=== PATIENT | female | born 1985 | race Caucasian/White ===

== ENCOUNTER 2016-10-05 09:45 | Emergency (ER) | payer OTHER ==
[2016-10-05 09:56] VITALS: RESP 18
--- NOTE | 2016-10-05 10:47 | XR ---
EXAMINATION TYPE: XR shoulder complete LT DATE OF EXAM: 10/05/2016 COMPARISON: NONE HISTORY: Pain TECHNIQUE: Three views are submitted. FINDINGS: The osseous structures are intact. There is no acute fracture or dislocation. The AC joint is maint ained. IMPRESSION: 1. No acute process. Follow-up with MRI if there is concern for soft tissue or rotator cuff injury.
--- NOTE | 2016-10-05 10:58 | ED ---
Upper Extremity HPI - General Chief Complaint: Extremity Injury, Upper Stated Complaint: shoulder pain Time Seen by Provider: 10/05/16 10:08 Source: patient, RN notes reviewed, old records reviewed Mode of arrival: ambulatory Limitations: no limitations - History of Present Illness Initial Comments: this is a 31-year-old female presenting to the emergency Department chief complaint of left shoulder pain. 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 Patient reports that since then she felt like her shoulder popped out of the time but then she relocated. Patient reports that she has full range of motion but it is more painful when she fully extends abducts her arm. Patient states she has no numbness or tingling down her hand or arm. Denies any bruising noted to the shoulder. Patient states that she has never seen an orthopedic physician before. Patient denies aching anything for pain.patient ports that she is right-handed. - Related Data Home Medications Medication Instructions Recorded Confirmed Calcium Carbonate [Calcium] 1,200 mg PO DAILY 08/25/14 11/22/15 Folic Acid 1.6 mg PO DAILY 06/14/15 11/22/15 Lisinopril [Lisinopril] 10 mg PO DAILY 11/22/15 11/22/15 Previous Rx's Medication Instructions Recorded Cephalexin [Keflex] 500 mg PO Q8HR #21 cap 11/22/15 Ibuprofen [Motrin] 600 mg PO Q8HR PRN #20 tab 10/05/16 Allergies Allergy/AdvReac Type Severity Reaction Status Date / Time venom-honey bee Allergy Swelling Verified 10/05/16 09:56 [bee venom (honey bee)] Review of Systems ROS Statement: Those systems with pertinent positive or pertinent negative responses have been documented in the HPI. ROS Other: All systems not noted in ROS Statement are negative. Past Medical History Past Medical History: Hypertension History of Any Multi-Drug Resistant Organisms: None Reported Past Surgical History: Tubal Ligation Additional Past Surgical History / Comment(s): wisdom teeth extraction Past Psychological History: No Psychological Hx Reported Smoking Status: Never smoker Past Alcohol Use History: Rare Past Drug Use History: None Reported General Exam - General Exam Comments Initial Comments: well-appearing 31-year-old female. No acute distress. Limitations: no limitations General appearance: alert, in no apparent distress Head exam: Present: atraumatic, normocephalic, normal inspection Eye exam: Present: normal appearance, PERRL, EOMI. Absent: scleral icterus, conjunctival injection, periorbital swelling ENT exam: Present: normal exam, mucous membranes moist Neck exam: Present: normal inspection. Absent: tenderness, meningismus, lymphadenopathy Respiratory exam: Present: normal lung sounds bilaterally. Absent: respiratory distress, wheezes, rales, rhonchi, stridor Cardiovascular Exam: Present: regular rate, normal rhythm, normal heart sounds. Absent: systolic murmur, diastolic murmur, rubs, gallop, clicks GI/Abdominal exam: Present: soft, normal bowel sounds. Absent: distended, tenderness, guarding, rebound, rigid Extremities exam: Present: normal inspection, full ROM, normal capillary refill. Absent: tenderness, pedal edema, joint swelling, calf tenderness Back exam: Present: normal inspection Neurological exam: Present: alert Psychiatric exam: Present: normal affect, normal mood Skin exam: Present: warm, dry, intact, normal color. Absent: rash Course Vital Signs 10/05/16 10/05/16 09:53 11:10 Temperature 98.7 F 98.1 F Pulse Rate 59 L 61 Respiratory 18 18 Rate Blood Pressure 151/106 130/95 O2 Sat by Pulse 97 100 Oximetry Medical Decision Making - Medical Decision Making this is a 31-year-old female chief complaint of left shoulder pain after getting kicked by for cattle. No bruising noted. She does have full range of motion reports pain with abduction. Patient actually was reviewed and negative for any acute process. She has normal sensation distally in the left hand and elbow. Patient will be discharged with a temperature medication. Discussed close follow-up with orthopedic physician. Patient agrees to plan will comply. Return parameters were discussed. - Radiology Data Radiology results: report reviewed Xray shoulder negative for any acute fracture, correlate with MRI for further treatment. Disposition Clinical Impression: Contusion of left shoulder, Rotator cuff sprain Disposition: HOME SELF-CARE Condition: Good Instructions: Rotator Cuff Injury (ED) Additional Instructions: is advised to apply heat and ice her shoulder. Take pain same temperature medication as directed. Follow-up with orthopedic. Return to emergency department if any alarming signs or symptoms occur. Prescriptions: Ibuprofen [Motrin] 600 mg PO Q8HR PRN #20 tab PRN Reason: Pain Referrals: Hammad Lundberg MD [Primary Care Provider] - 1-2 days Milad Michele PAC [PHYSICIAN WEIGHT COUNT OPERATOR] - 1-2 days Time of Disposition: 10:57
[2016-10-05 11:11] VITALS: BP 130/95; PULSE 61; TEMP 98.1
== END 2016-10-05 11:11 | disposition home or self-care (01) ==
LOC: EC 09:45
DX: S43.422A Sprain of left rotator cuff capsule, initial encounter (principal); S40.012A Contusion of left shoulder, initial encounter; I10 Essential (primary) hypertension; Z79.899 Other long term (current) drug therapy; Z91.030 Bee allergy status; W55.22XA Struck by cow, initial encounter; Y93.K9 Activity, other involving animal care
CPT/HCPCS: 99284

== ENCOUNTER 2016-12-30 21:19 | Emergency (ER) | payer OTHER ==
[2016-12-30] MEDS ORDERED: KETOROLAC 30 MG/ML 1 ML VIAL IVP STA (22:03)
[2016-12-30 22:13] LABS: Basophils % (A) 0 %; CH 30.1; CHCM 32.3; Eosinophils # (A) 0.3 k/uL (0-0.7); Eosinophils % (A) 5 %; HCT 43.4 % (34.0-46.0); HDW 2.02; HGB 13.7 gm/dL (11.4-16.0); Luc # (Auto) 0.07; Luc % (Auto) 1; Lymphocytes # (A) 1.6 k/uL (1.0-4.8); Lymphocytes % (A) 24 %; MCH 29.6 pg (25.0-35.0); MCHC 31.6 g/dL (31.0-37.0); MCV 93.7 fL (80.0-100.0); Mean Platelet Volume 8.2; Monocytes # (A) 0.6 k/uL (0-1.0); Monocytes % (A) 10 %; Neutrophils # (A) 3.8 k/uL (1.3-7.7); Neutrophils % (A) 60 %; RBC 4.63 m/uL (3.80-5.40); RDW 13.9 % (11.5-15.5); WBC 6.4 k/uL (3.8-10.6); WBC (Perox) 6.66
[2016-12-30 22:14] LABS: Appearance,Urine Clear (Clear); Bacteria,Urine Rare /hpf; Bilirubin,Urine Negative (Negative); Glucose,Urine (UA) Negative (Negative); Ketones,Urine Negative (Negative); Leukocyte Esterase,Urine Trace (Negative); Mucus,Urine Occasional /hpf; Nitrite,Urine Negative (Negative); PH, Urine 5.5 (5.0-8.0); Particle Count 4446; Protein,Urine Trace (Negative); Specific Gravity,Urine 1.019 (1.001-1.035); Squamous Epithelial Cell,Urine 6 /hpf (0-4); UA Billing (MACRO vs. MICRO) MICRO; Urobilinogen,Urine <2.0 mg/dL (<2.0); WBC,Urine 4 /hpf (0-5)
[2016-12-30 22:23] LABS: ALT 32 U/L (9-52); AST 21 U/L (14-36); Alkaline Phosphatase 54 U/L (38-126); Anion Gap 6 mmol/L; Blood Urea Nitrogen 16 mg/dL (7-17); Carbon Dioxide 29 mmol/L (22-30); Chloride 104 mmol/L (98-107); Glucose 95 mg/dL (74-99); Non-African American GFR(MDRD) >60 (>60 ml/min/1.73 sqM); Potassium 3.8 mmol/L (3.5-5.1); Sodium 139 mmol/L (137-145); Total Bilirubin 0.3 mg/dL (0.2-1.3); Total Protein 6.5 g/dL (6.3-8.2)
--- NOTE | 2016-12-30 23:09 | US ---
EXAMINATION TYPE: US transvaginal DATE OF EXAM: 12/30/2016 COMPARISON: NONE CLINICAL HISTORY: Pain. Pain TECHNIQUE: Transvaginal (TV) Date of LMP: 12/29/2016 EXAM MEASUREMENTS: Uterus: 8.0 x 4.2 x 5.9 cm Endometrial Stripe: 0.7 cm Right Ovary: 3.5 x 1.9 x 2.2 cm Left Ovary: 2.1 x 1.5 x 1.7 cm 1. Uterus: Anteverted wnl 2. Endometrium: Hypoechoic in appearance 3. Right Ovary: Anechoic area seen measuring 1.8 x 1.6 x 1.8cm 4. Left Ovary: Follicles visualized Spectral, color and waveform doppler imaging shows good arterial and venous flow within the ovaries ; there is no evidence for ovarian torsion. 5. Bilateral Adnexa: wnl 6. Posterior cul-de-sac: wnl Anechoic area visualized right ovary measuring 1.8 x 1.6 x 1.8cm IMPRESSION: No evidence of ovarian torsion. Simple right ovarian cyst. Normal uterus and endometrium.
--- NOTE | 2016-12-30 23:13 | ED ---
Abdominal Pain HPI - General Chief Complaint: Abdominal Pain Stated Complaint: Female Time Seen by Provider: 12/30/16 21:52 Source: patient Mode of arrival: ambulatory Limitations: no limitations - History of Present Illness Initial Comments: 31 year-old female patient presents to the emergency department today for evaluation of left lower pelvic pain. Patient states that this started early this morning. States that she has had this pain intermittently since then. She states that the pain is a sharp and cramping. Patient states that she did start her period today however denies any history of similar pain with her periods. She denies any abnormal vaginal discharge or bleeding prior to starting her period today. She denies any hematuria, dysuria, urinary frequency , or urinary urgency. Denies any radiation of the pain into her back. Patient denies any recent rash, fever, chills, shortness breath, chest pain, nausea, vomiting, diarrhea, constipation, back pain, numbness, tingling, dizziness, weakness, headache, visual changes, or any other complaints. - Related Data Home Medications Medication Instructions Recorded Confirmed Folic Acid 0.8 mg PO DAILY 06/14/15 12/30/16 Lisinopril [Lisinopril] 10 mg PO DAILY 11/22/15 12/30/16 Calcium Carbonate/Vitamin D3 1 tab PO DAILY 12/30/16 12/30/16 [Calcium 600-Vit D3 200 Tablet] Cranberry Fruit Concentrate 450 mg PO DAILY 12/30/16 12/30/16 [Cranberry] Allergies Allergy/AdvReac Type Severity Reaction Status Date / Time venom-honey bee Allergy Swelling Verified 12/30/16 22:28 [bee venom (honey bee)] Review of Systems ROS Statement: Those systems with pertinent positive or pertinent negative responses have been documented in the HPI. ROS Other: All systems not noted in ROS Statement are negative. Past Medical History Past Medical History: Hypertension History of Any Multi-Drug Resistant Organisms: None Reported Past Surgical History: Tubal Ligation Additional Past Surgical History / Comment(s): wisdom teeth extraction Past Psychological History: No Psychological Hx Reported Smoking Status: Never smoker Past Alcohol Use History: Rare Past Drug Use History: None Reported General Exam Limitations: no limitations General appearance: alert, in no apparent distress, other (This is a well- developed, well-nourished adult female patient in no acute distress. Vital signs upon presentation were temperature 98.9F, pulse 80, respirations 20, blood pressure 153/98, pulse ox 99% on room air.) Eye exam: Present: normal appearance, PERRL, EOMI. Absent: scleral icterus, conjunctival injection, periorbital swelling Respiratory exam: Present: normal lung sounds bilaterally. Absent: respiratory distress, wheezes, rales, rhonchi, stridor Cardiovascular Exam: Present: regular rate, normal rhythm, normal heart sounds. Absent: systolic murmur, diastolic murmur, rubs, gallop, clicks GI/Abdominal exam: Present: soft, normal bowel sounds. Absent: distended, tenderness, guarding, rebound, rigid Back exam: Present: normal inspection. Absent: CVA tenderness (R), CVA tenderness (L) Neurological exam: Present: alert, oriented X3, CN II-XII intact Psychiatric exam: Present: normal affect, normal mood Skin exam: Present: warm, dry, intact, normal color. Absent: rash Course Vital Signs 12/30/16 12/30/16 21:35 23:32 Temperature 98.9 F 98 F Pulse Rate 80 84 Respiratory 20 18 Rate Blood Pressure 153/98 142/90 O2 Sat by Pulse 99 100 Oximetry Medical Decision Making - Medical Decision Making 31-year-old female patient presented to the emergency department today for evaluation of left lower pelvic pain. Physical examination was unremarkable. Patient was not specially tender to the left pelvic region. Patient did report that she started her period today. We did do blood work which was unremarkable. Urinalysis was negative for any acute infection. Transvaginal ultrasound of the pelvis was obtained and showed a simple right ovarian cyst. No evidence of ovarian torsion. I did discuss findings with the patient. I informed her that her symptoms are most likely from menstrual cramping. She is instructed to follow-up with her primary care physician for recheck in 1-2 days. She is instructed to follow-up with her LOCATION DIRECTOR for further evaluation. She states instructed to return here immediately for any new, worsening, or concerning symptoms. She verbalizes understanding and agrees with this plan. - Lab Data Result diagrams: 12/30/16 22:00 12/30/16 22:00 Lab Results 12/30/16 12/30/16 12/30/16 Range/Units 22:00 22:00 22:00 WBC 6.4 (3.8-10.6) k/uL RBC 4.63 (3.80-5.40) m/uL Hgb 13.7 (11.4-16.0) gm/dL Hct 43.4 (34.0-46.0) % MCV 93.7 (80.0-100.0) fL MCH 29.6 (25.0-35.0) pg MCHC 31.6 (31.0-37.0) g/dL RDW 13.9 (11.5-15.5) % Plt Count 202 (150-450) k/uL Neutrophils % 60 % Lymphocytes % 24 % Monocytes % 10 % Eosinophils % 5 % Basophils % 0 % Neutrophils # 3.8 (1.3-7.7) k/uL Lymphocytes # 1.6 (1.0-4.8) k/uL Monocytes # 0.6 (0-1.0) k/uL Eosinophils # 0.3 (0-0.7) k/uL Basophils # 0.0 (0-0.2) k/uL Sodium 139 (137-145) mmol/L Potassium 3.8 (3.5-5.1) mmol/L Chloride 104 (98-107) mmol/L Carbon Dioxide 29 (22-30) mmol/L Anion Gap 6 mmol/L BUN 16 (7-17) mg/dL Creatinine 0.89 (0.52-1.04) mg/dL Est GFR (MDRD) Af Amer >60 (>60 ml/min/1.73 sqM) Est GFR (MDRD) Non-Af >60 (>60 ml/min/1.73 sqM) Glucose 95 (74-99) mg/dL Calcium 10.0 (8.4-10.2) mg/dL Total Bilirubin 0.3 (0.2-1.3) mg/dL AST 21 (14-36) U/L ALT 32 (9-52) U/L Alkaline Phosphatase 54 (38-126) U/L Total Protein 6.5 (6.3-8.2) g/dL Albumin 3.8 (3.5-5.0) g/dL Urine Color Urine Appearance (Clear) Urine pH (5.0-8.0) Ur Specific [place] (1.001-1.035) Urine Protein (Negative) Urine Glucose (UA) (Negative) Urine Ketones (Negative) Urine Blood (Negative) Urine Nitrite (Negative) Urine Bilirubin (Negative) Urine Urobilinogen (<2.0) mg/dL Ur Leukocyte Esterase (Negative) Urine WBC (0-5) /hpf Ur Squamous Epith Cells (0-4) /hpf Urine Bacteria (None) /hpf Urine Mucus (None) /hpf Urine HCG, Qual Not Detected (Not Detectd) 12/30/16 Range/Units 22:00 WBC (3.8-10.6) k/uL RBC (3.80-5.40) m/uL Hgb (11.4-16.0) gm/dL Hct (34.0-46.0) % MCV (80.0-100.0) fL MCH (25.0-35.0) pg MCHC (31.0-37.0) g/dL RDW (11.5-15.5) % Plt Count (150-450) k/uL Neutrophils % % Lymphocytes % % Monocytes % % Eosinophils % % Basophils % % Neutrophils # (1.3-7.7) k/uL Lymphocytes # (1.0-4.8) k/uL Monocytes # (0-1.0) k/uL Eosinophils # (0-0.7) k/uL Basophils # (0-0.2) k/uL Sodium (137-145) mmol/L Potassium (3.5-5.1) mmol/L Chloride (98-107) mmol/L Carbon Dioxide (22-30) mmol/L Anion Gap mmol/L BUN (7-17) mg/dL Creatinine (0.52-1.04) mg/dL Est GFR (MDRD) Af Amer (>60 ml/min/1.73 sqM) Est GFR (MDRD) Non-Af (>60 ml/min/1.73 sqM) Glucose (74-99) mg/dL Calcium (8.4-10.2) mg/dL Total Bilirubin (0.2-1.3) mg/dL AST (14-36) U/L ALT (9-52) U/L Alkaline Phosphatase (38-126) U/L Total Protein (6.3-8.2) g/dL Albumin (3.5-5.0) g/dL Urine Color Yellow Urine Appearance Clear (Clear) Urine pH 5.5 (5.0-8.0) Ur Specific [place] 1.019 (1.001-1.035) Urine Protein Trace H (Negative) Urine Glucose (UA) Negative (Negative) Urine Ketones Negative (Negative) Urine Blood Large H (Negative) Urine Nitrite Negative (Negative) Urine Bilirubin Negative (Negative) Urine Urobilinogen <2.0 (<2.0) mg/dL Ur Leukocyte Esterase Trace H (Negative) Urine WBC 4 (0-5) /hpf Ur Squamous Epith Cells 6 H (0-4) /hpf Urine Bacteria Rare H (None) /hpf Urine Mucus Occasional H (None) /hpf Urine HCG, Qual (Not Detectd) - Radiology Data Radiology results: report reviewed, image reviewed Transvaginal pelvic ultrasound was obtained. Report reviewed in its entirety. Impression by Dr. Hernandez shows no evidence of ovarian torsion. Simple right ovarian cyst. Normal uterus and endometrium. Disposition Clinical Impression: Pelvic pain, Ovarian cyst Disposition: HOME SELF-CARE Condition: Good Instructions: Pelvic Pain in Women (ED) Additional Instructions: Take ibuprofen for pain control. Follow-up with your LOCATION DIRECTOR for reevaluation as soon as possible. Return here immediately for any new, worsening, or concerning symptoms. Referrals: Hammad Lundberg MD [Primary Care Provider] - 1-2 days Time of Disposition: 23:13
[2016-12-30 23:33] VITALS: BP 142/90; PULSE 84; RESP 18; TEMP 98
== END 2016-12-30 23:32 | disposition home or self-care (01) ==
LOC: EC 21:19
DX: N83.201 Unspecified ovarian cyst, right side (principal); I10 Essential (primary) hypertension; Z79.899 Other long term (current) drug therapy; Z91.030 Bee allergy status; Z98.51 Tubal ligation status
CPT/HCPCS: 36415; 80053; 85025; 81001; 81025; 93975; 76830; 99284; 96374; J1885

== ENCOUNTER 2017-09-09 16:24 | Emergency (ER) | payer OTHER ==
[2017-09-09 16:39] VITALS: RESP 18
[2017-09-09] MEDS ORDERED: KETOROLAC 30 MG/ML 1 ML VIAL IM STA (17:03)
[2017-09-09] MEDS ORDERED: LISINOPRIL 20 MG TAB PO STA (17:04)
--- NOTE | 2017-09-09 17:08 | ED ---
Extremity Problem HPI - General Chief complaint: Extremity Problem,Nontraumatic Stated complaint: Shoulder Pain Time Seen by Provider: 09/09/17 16:56 Source: patient Mode of arrival: ambulatory Limitations: no limitations - History of Present Illness Initial comments: 31-year-old female patient presents to emergency department today for evaluation of right shoulder pain. Patient states that the pain started today while she was at work. Patient states that she has been doing this job for the last 3 years and has not had any problems. Patient is from the pain as a sharp stabbing pain in the ball of her shoulder. States it hurts worse when she raises her arm above her head. States the pain goes from the right side of her neck down to the shoulder. She denies any numbness or tingling to the arm. She denies any abdominal pain, nausea, or vomiting with this. Denies any chest or back pain. Denies any shortness of breath. Patient states that about a week ago she was kicked in the shoulder by a bull, but did not have any problems after that until now. Patient denies any recent rash, fever, chills, diarrhea, constipation, back pain, dizziness, weakness, hematuria, dysuria, urinary urgency, urinary frequency, headache, visual changes, or any other complaints. - Related Data Home Medications Medication Instructions Recorded Confirmed Folic Acid 0.8 mg PO DAILY 06/14/15 09/09/17 Calcium Carbonate/Vitamin D3 1 tab PO DAILY 12/30/16 09/09/17 [Calcium 600-Vit D3 200 Tablet] Cranberry Fruit Concentrate 450 mg PO DAILY 12/30/16 09/09/17 [Cranberry] Ferrous Sulfate [Feosol] 325 mg PO DAILY 09/09/17 09/09/17 Ibuprofen [Motrin Ib] 400 mg PO Q6H PRN 09/09/17 09/09/17 Vitamin C/Biotin [Hair, Skin and 1 tab PO DAILY 09/09/17 09/09/17 Nails] Previous Rx's Medication Instructions Recorded Lisinopril [Prinivil] 20 mg PO DAILY #30 tablet 09/09/17 Allergies Allergy/AdvReac Type Severity Reaction Status Date / Time venom-honey bee Allergy Swelling Verified 09/09/17 17:21 [bee venom (honey bee)] Review of Systems ROS Statement: Those systems with pertinent positive or pertinent negative responses have been documented in the HPI. ROS Other: All systems not noted in ROS Statement are negative. Past Medical History Past Medical History: Hypertension History of Any Multi-Drug Resistant Organisms: None Reported Past Surgical History: Tubal Ligation Additional Past Surgical History / Comment(s): wisdom teeth extraction Past Psychological History: No Psychological Hx Reported Smoking Status: Never smoker Past Alcohol Use History: Rare Past Drug Use History: None Reported General Exam Limitations: no limitations General appearance: alert, in no apparent distress, other (This is a well- developed, well-nourished adult female patient in no acute distress. Vital signs upon presentation are temperature 98.5F, pulse 65, respirations 18, blood pressure 180/125, pulse ox 99% on room air.) Eye exam: Present: normal appearance, PERRL, EOMI. Absent: scleral icterus, conjunctival injection, periorbital swelling ENT exam: Present: normal exam, normal oropharynx, mucous membranes moist Respiratory exam: Present: normal lung sounds bilaterally. Absent: respiratory distress, wheezes, rales, rhonchi, stridor Cardiovascular Exam: Present: regular rate, normal rhythm, normal heart sounds. Absent: systolic murmur, diastolic murmur, rubs, gallop, clicks GI/Abdominal exam: Present: soft, normal bowel sounds. Absent: distended, tenderness, guarding, rebound, rigid Extremities exam: Present: normal inspection, full ROM, normal capillary refill , other (Patient has full range of motion no tenderness to the right shoulder. Does report increased pain with forward flexion, extension, abduction both passive and active. Skin to the right arm is pink, warm, and dry. Cap refills less than 3 seconds. Radial pulses 2+ and equal bilaterally. Machine Helper strength is equal bilaterally.). Absent: tenderness, pedal edema, joint swelling, calf tenderness Back exam: Present: normal inspection. Absent: vertebral tenderness Neurological exam: Present: alert, oriented X3, CN II-XII intact Psychiatric exam: Present: normal affect, normal mood Skin exam: Present: warm, dry, intact, normal color. Absent: rash Course Vital Signs 09/09/17 09/09/17 16:36 17:14 Temperature 98.5 F Pulse Rate 65 63 Respiratory 18 18 Rate Blood Pressure 180/125 211/119 O2 Sat by Pulse 99 98 Oximetry Medical Decision Making - Medical Decision Making 31-year-old female patient presented to the emergency department today for evaluation of right shoulder pain. Physical examination was relatively unremarkable ever patient did have increased pain with range of motion. X-ray did show degenerative changes to the acromioclavicular joint. Patient's blood pressure is also elevated while here in the emergency department. We did give her blood pressure medication we will prescribe her 30 days worth until she can get in to see her primary care physician to have further management did discuss findings and results with the patient. We did discuss muscular versus tendinous injury for the cause of her pain. She is instructed to follow-up with her primary care physician for symptoms aren't improved over the next 1-2 days. Return parameters discussed in detail. She verbalizes understanding and agrees this plan. - Radiology Data Radiology results: report reviewed, image reviewed 3 views of the right shoulder obtained. Report is reviewed in its entirety. Impression by Dr. Centeno shows no acute process. Disposition Clinical Impression: Right shoulder pain Disposition: HOME SELF-CARE Condition: Good Instructions: Shoulder Pain (ED) Additional Instructions: Apply warm moist heat to the right shoulder. Take pain medication as instructed. Take blood pressure medication as directed, have refills by her primary care physician. Follow-up with her primary care physician for recheck in 1-2 days. Return here immediately for any new, worsening, or concerning symptoms. Prescriptions: Lisinopril [Prinivil] 20 mg PO DAILY #30 tablet Is patient prescribed a controlled substance at d/c from ED?: No Referrals: Hammad Lundberg MD [Primary Care Provider] - 1-2 days Time of Disposition: 18:17
--- NOTE | 2017-09-09 17:51 | XR ---
PROCEDURE: XR shoulder complete RT, 3 views DATE AND TIME: 09/09/2017 5:11 PM REFERRING PHYSICIAN: Bobbi Miller CLINICAL INDICATION: PHH, Pain after injury TECHNIQUE: Department protocol. COMPARISON: None FINDINGS: There is no fracture or malalignment. Mild acromioclavicular joint degenerative changes appreciated, without malalignment. The soft tissues are unremarkable. IMPRESSION: NO ACUTE PROCESS.
[2017-09-09] MEDS ORDERED: ACET/COD 300 MG/30 MG STARTER PACK 6 TAB BTL PO STA (18:17)
[2017-09-09 18:33] VITALS: BP 193/127; PULSE 66; TEMP 97.9
[2017-09-09] MEDS ORDERED: cloNIDine HCL 0.1 MG TAB PO STA (18:33)
== END 2017-09-09 18:40 | disposition home or self-care (01) ==
LOC: EC 16:24
DX: M25.511 Pain in right shoulder (principal); M19.011 Primary osteoarthritis, right shoulder; I10 Essential (primary) hypertension; Z79.899 Other long term (current) drug therapy; Z91.030 Bee allergy status
CPT/HCPCS: 73030; 99283; 96372; J1885

== ENCOUNTER 2018-07-26 15:42 | Emergency (ER) | payer OTHER ==
[2018-07-26 15:52] VITALS: RESP 18
[2018-07-26] MEDS ORDERED: SODIUM CHLORIDE 0.9% 500 ML 500 ML IV STA (16:39)
--- NOTE | 2018-07-26 16:44 | ED ---
General Adult HPI - General Chief complaint: Abdominal Pain Stated complaint: left side upper abdominal pain Time Seen by Provider: 07/26/18 16:25 Source: patient, RN notes reviewed Mode of arrival: ambulatory Limitations: no limitations - History of Present Illness Initial comments: 32-year-old female with a past medical history of hypertension presents to the emergency department for a chief complaint of left-sided chest pain. States that this started this morning. States it was sharp in nature. States that it breathing makes it worse. States deep breaths seem to worsen this. States this didn't go away however about 3 hours ago came back when she was at work. Denies any cardiac history. Denies any hormone use or recent travel. Denies any calf pain. Denies any abdominal pain. Denies any back pain. Patient has no other complaints at this time including shortness of breath, abdominal pain, nausea or vomiting, headache, or visual changes. - Related Data Home Medications Medication Instructions Recorded Confirmed Calcium Carbonate/Vitamin D3 1 tab PO DAILY 12/30/16 07/26/18 [Calcium 600-Vit D3 200 Tablet] Ferrous Sulfate [Feosol] 325 mg PO DAILY 09/09/17 07/26/18 Vitamin C/Biotin [Hair, Skin and 1 tab PO DAILY 09/09/17 07/26/18 Nails] Previous Rx's Medication Instructions Recorded Lisinopril [Prinivil] 20 mg PO DAILY #30 tablet 09/09/17 Allergies Allergy/AdvReac Type Severity Reaction Status Date / Time venom-honey bee Allergy Swelling Verified 07/26/18 16:25 [bee venom (honey bee)] Review of Systems ROS Statement: Those systems with pertinent positive or pertinent negative responses have been documented in the HPI. ROS Other: All systems not noted in ROS Statement are negative. Past Medical History Past Medical History: Hypertension History of Any Multi-Drug Resistant Organisms: None Reported Past Surgical History: Tubal Ligation Additional Past Surgical History / Comment(s): wisdom teeth extraction Past Psychological History: No Psychological Hx Reported Smoking Status: Never smoker Past Alcohol Use History: Rare Past Drug Use History: None Reported General Exam Limitations: no limitations General appearance: alert, in no apparent distress Head exam: Present: atraumatic, normocephalic, normal inspection Eye exam: Present: normal appearance, PERRL, EOMI. Absent: scleral icterus, conjunctival injection, periorbital swelling ENT exam: Present: normal exam, mucous membranes moist Neck exam: Present: normal inspection, full ROM. Absent: tenderness, meningismus, lymphadenopathy Respiratory exam: Present: normal lung sounds bilaterally, chest wall tenderness (Tenderness noted to the left inferior chest wall, reproducible). Absent: respiratory distress, wheezes, rales, rhonchi, stridor Cardiovascular Exam: Present: regular rate, normal rhythm, normal heart sounds. Absent: systolic murmur, diastolic murmur, rubs, gallop, clicks GI/Abdominal exam: Present: soft, normal bowel sounds. Absent: distended, tenderness, guarding, rebound, rigid Neurological exam: Present: alert, oriented X3, CN II-XII intact Psychiatric exam: Present: normal affect, normal mood Course Vital Signs 07/26/18 07/26/18 15:50 17:16 Temperature 98.2 F 97.9 F Pulse Rate 76 64 Respiratory 18 18 Rate Blood Pressure 153/102 139/106 O2 Sat by Pulse 100 99 Oximetry EKG Findings - EKG Comments: EKG Findings:: Normal sinus rhythm, ventricular rate 67, LA interval 170, QTc 458 Medical Decision Making - Medical Decision Making 32-year-old female presents to the emergency department for a chief complaint of left-sided pleuritic chest pain. States this started today and then went away. States it started again about 3 hours ago. On exam patient is well-appearing. Patient does have reproducible left-sided chest pain with palpation. Vitals are stable the patient is hypertensive. Patient does have a known history of hypertension. CBC CMP unremarkable. Troponin negative, d-dimer negative. Low suspicion for PE. EKG does not show any evidence of ST elevation or depression. Chest x-ray negative for any acute pathologies. Patient reevaluated, states she is actually pain-free. At this time patient likely has musculoskeletal chest pain in origin as it is reproducible on exam. Patient will follow up with primary care. She'll return if she has any worsening symptoms. On discharge patient's diastolic blood pressure slightly elevated at 106. This is asymptomatic and did not think this pleuritic chest pain which is now pain- free is related whatsoever. However patient was given a 10 mg dose of lisinopril as she normally takes 20 in the morning. Discussed following up with her primary care for the pressure medication changes. - Lab Data Result diagrams: 07/26/18 16:46 07/26/18 16:46 Lab Results 07/26/18 07/26/18 07/26/18 Range/Units 16:46 16:46 16:46 WBC 7.5 (3.8-10.6) k/uL RBC 4.99 (3.80-5.40) m/uL Hgb 14.6 (11.4-16.0) gm/dL Hct 45.5 (34.0-46.0) % MCV 91.1 (80.0-100.0) fL MCH 29.3 (25.0-35.0) pg MCHC 32.1 (31.0-37.0) g/dL RDW 12.7 (11.5-15.5) % Plt Count 204 (150-450) k/uL Neutrophils % 50 % Lymphocytes % 36 % Monocytes % 6 % Eosinophils % 5 % Basophils % 1 % Neutrophils # 3.7 (1.3-7.7) k/uL Lymphocytes # 2.7 (1.0-4.8) k/uL Monocytes # 0.5 (0-1.0) k/uL Eosinophils # 0.4 (0-0.7) k/uL Basophils # 0.0 (0-0.2) k/uL PT 10.2 (9.0-12.0) sec INR 0.9 (<1.2) APTT 24.2 (22.0-30.0) sec D-Dimer <0.17 (<0.60) mg/L FEU Sodium 139 (137-145) mmol/L Potassium 4.6 (3.5-5.1) mmol/L Chloride 107 (98-107) mmol/L Carbon Dioxide 25 (22-30) mmol/L Anion Gap 7 mmol/L BUN 16 (7-17) mg/dL Creatinine 0.67 (0.52-1.04) mg/dL Est GFR (CKD-EPI)AfAm >90 (>60 ml/min/1.73 sqM) Est GFR (CKD-EPI)NonAf >90 (>60 ml/min/1.73 sqM) Glucose 97 (74-99) mg/dL Calcium 9.3 (8.4-10.2) mg/dL Magnesium 2.2 (1.6-2.3) mg/dL Total Bilirubin 0.4 (0.2-1.3) mg/dL AST 27 (14-36) U/L ALT 24 (9-52) U/L Alkaline Phosphatase 61 (38-126) U/L Troponin I (0.000-0.034) ng/mL Total Protein 6.9 (6.3-8.2) g/dL Albumin 4.2 (3.5-5.0) g/dL Amylase 45 (30-110) U/L Lipase 156 (23-300) U/L Urine Color Urine Appearance (Clear) Urine pH (5.0-8.0) Ur Specific [place] (1.001-1.035) Urine Protein (Negative) Urine Glucose (UA) (Negative) Urine Ketones (Negative) Urine Blood (Negative) Urine Nitrite (Negative) Urine Bilirubin (Negative) Urine Urobilinogen (<2.0) mg/dL Ur Leukocyte Esterase (Negative) Urine RBC (0-5) /hpf Urine WBC (0-5) /hpf Ur Squamous Epith Cells (0-4) /hpf Urine Bacteria (None) /hpf Urine Mucus (None) /hpf Urine HCG, Qual (Not Detectd) 07/26/18 07/26/18 07/26/18 Range/Units 16:46 17:00 17:00 WBC (3.8-10.6) k/uL RBC (3.80-5.40) m/uL Hgb (11.4-16.0) gm/dL Hct (34.0-46.0) % MCV (80.0-100.0) fL MCH (25.0-35.0) pg MCHC (31.0-37.0) g/dL RDW (11.5-15.5) % Plt Count (150-450) k/uL Neutrophils % % Lymphocytes % % Monocytes % % Eosinophils % % Basophils % % Neutrophils # (1.3-7.7) k/uL Lymphocytes # (1.0-4.8) k/uL Monocytes # (0-1.0) k/uL Eosinophils # (0-0.7) k/uL Basophils # (0-0.2) k/uL PT (9.0-12.0) sec INR (<1.2) APTT (22.0-30.0) sec D-Dimer (<0.60) mg/L FEU Sodium (137-145) mmol/L Potassium (3.5-5.1) mmol/L Chloride (98-107) mmol/L Carbon Dioxide (22-30) mmol/L Anion Gap mmol/L BUN (7-17) mg/dL Creatinine (0.52-1.04) mg/dL Est GFR (CKD-EPI)AfAm (>60 ml/min/1.73 sqM) Est GFR (CKD-EPI)NonAf (>60 ml/min/1.73 sqM) Glucose (74-99) mg/dL Calcium (8.4-10.2) mg/dL Magnesium (1.6-2.3) mg/dL Total Bilirubin (0.2-1.3) mg/dL AST (14-36) U/L ALT (9-52) U/L Alkaline Phosphatase (38-126) U/L Troponin I <0.012 (0.000-0.034) ng/mL Total Protein (6.3-8.2) g/dL Albumin (3.5-5.0) g/dL Amylase (30-110) U/L Lipase (23-300) U/L Urine Color Light Yellow Urine Appearance Cloudy H (Clear) Urine pH 7.0 (5.0-8.0) Ur Specific [place] 1.006 (1.001-1.035) Urine Protein Negative (Negative) Urine Glucose (UA) Negative (Negative) Urine Ketones Negative (Negative) Urine Blood Moderate H (Negative) Urine Nitrite Negative (Negative) Urine Bilirubin Negative (Negative) Urine Urobilinogen <2.0 (<2.0) mg/dL Ur Leukocyte Esterase Moderate H (Negative) Urine RBC 4 (0-5) /hpf Urine WBC 11 H (0-5) /hpf Ur Squamous Epith Cells 6 H (0-4) /hpf Urine Bacteria Rare H (None) /hpf Urine Mucus Rare H (None) /hpf Urine HCG, Qual Not Detected (Not Detectd) Disposition Clinical Impression: Musculoskeletal chest pain Disposition: HOME SELF-CARE Condition: Good Instructions (If sedation given, give patient instructions): Chest Wall Pain (ED) Additional Instructions: Please take motrin and tylenol for pain. Please follow up with primary care in 1-2 days for recheck and blood pressure medication. Return here to the ED if you have any worsening symptoms. Is patient prescribed a controlled substance at d/c from ED?: No Referrals: Dahlia Rodríguez MD [STAFF PHYSICIAN] - 1-2 days Time of Disposition: 18:13
[2018-07-26 17:06] LABS: Basophils % (A) 1 %; Eosinophils # (A) 0.4 k/uL (0-0.7); Eosinophils % (A) 5 %; HCT 45.5 % (34.0-46.0); HGB 14.6 gm/dL (11.4-16.0); Lymphocytes # (A) 2.7 k/uL (1.0-4.8); Lymphocytes % (A) 36 %; MCH 29.3 pg (25.0-35.0); MCHC 32.1 g/dL (31.0-37.0); MCV 91.1 fL (80.0-100.0); Mean Platelet Volume 7.3; Monocytes # (A) 0.5 k/uL (0-1.0); Monocytes % (A) 6 %; Neutrophils # (A) 3.7 k/uL (1.3-7.7); Neutrophils % (A) 50 %; Platelet Count 204 k/uL (150-450); RBC 4.99 m/uL (3.80-5.40); RDW 12.7 % (11.5-15.5); WBC 7.5 k/uL (3.8-10.6)
[2018-07-26 17:12] LABS: Appearance,Urine Cloudy (Clear); Bacteria,Urine Rare /hpf; Bilirubin,Urine Negative (Negative); Blood,Urine Moderate (Negative); Color,Urine Light Yellow; Glucose,Urine (UA) Negative (Negative); Ketones,Urine Negative (Negative); Leukocyte Esterase,Urine Moderate (Negative); Mucus,Urine Rare /hpf; Nitrite,Urine Negative (Negative); Protein,Urine Negative (Negative); RBC,Urine 4 /hpf (0-5); Specific Gravity,Urine 1.006 (1.001-1.035); Squamous Epithelial Cell,Urine 6 /hpf (0-4); Urobilinogen,Urine <2.0 mg/dL (<2.0); WBC,Urine 11 /hpf (0-5)
[2018-07-26 17:13] LABS: ALT 24 U/L (9-52); AST 27 U/L (14-36); African American GFR (CKD) >90 (>60 ml/min/1.73 sqM); Albumin 4.2 g/dL (3.5-5.0); Alkaline Phosphatase 61 U/L (38-126); Amylase 45 U/L (30-110); Anion Gap 7 mmol/L; Blood Urea Nitrogen 16 mg/dL (7-17); Calcium 9.3 mg/dL (8.4-10.2); Carbon Dioxide 25 mmol/L (22-30); Chloride 107 mmol/L (98-107); Glucose 97 mg/dL (74-99); Lipase 156 U/L (23-300); Magnesium 2.2 mg/dL (1.6-2.3); Potassium 4.6 mmol/L (3.5-5.1); Sodium 139 mmol/L (137-145); Total Bilirubin 0.4 mg/dL (0.2-1.3); Total Protein 6.9 g/dL (6.3-8.2)
[2018-07-26 17:16] VITALS: TEMP 97.9
[2018-07-26 17:20] LABS: D-Dimer <0.17 mg/L FEU (<0.60); INR 0.9 (<1.2); Partial Thromboplastin Time 24.2 sec (22.0-30.0); Prothrombin Time 10.2 sec (9.0-12.0)
--- NOTE | 2018-07-26 17:36 | XR ---
EXAMINATION TYPE: XR chest 2V DATE OF EXAM: 07/26/2018 COMPARISON: 09/04/2012 HISTORY: Chest pain TECHNIQUE: Frontal and lateral views of the chest are obtained. FINDINGS: Heart and mediastinum are normal. Lungs are clear. Diaphragm is normal. Bony thorax appear s normal. There are chest leads. IMPRESSION: Normal chest. No change.
[2018-07-26] MEDS ORDERED: LISINOPRIL 10 MG TAB PO STA (18:10)
[2018-07-26 18:55] VITALS: BP 135/107; PULSE 65
== END 2018-07-26 19:00 | disposition home or self-care (01) ==
LOC: EC 15:42
DX: R07.89 Other chest pain (principal); I10 Essential (primary) hypertension; Z91.030 Bee allergy status
CPT/HCPCS: 36415; 71046; 80053; 81001; 81025; 82150; 83690; 83735; 84484; 85025; 85379; 85610; 85730; 93005; 96360; 96361; 99285

== ENCOUNTER → 2018-09-01 | Outpatient (CLI) | payer OTHER ==
--- NOTE | 2018-09-01 11:52 | EST ---
EXERCISE STRESS AGE: 32 SEX: F HT: 63" WT: 145 PROTOCOL: Robert Stress Test STAGE: V DURATION OF EXERCISE: 13:00 HEART RATE REST: 84 BLOOD PRESSURE REST: 157/82 MAXIMUM HEART RATE ACHIEVED: 173 MAXIMUM BLOOD PRESSURE: 189/113 85% MPHR: 162 100% MPHR: 190 METS: 13.5 INDICATIONS: Chest pain CLINICAL INFORMATION: Baseline EKG revealed normal sinus rhythm without any significant ST-T changes. Patient walked on a standard Robert protocol for a total duration of 13 minutes and achieved a maximal heart rate of 173 beats per minute. She developed some fatigue and shortness of breath. She also complained of some chest discomfort during the exercise. The quality of the discomfort did not seem anginal. There was no evidence of any significant arrhythmia, one isolated PVC was noted. There was no ST-segment changes to indicate ischemia. There was some baseline artifact noted. FINAL IMPRESSION: Excellent exercise capacity with a negative stress test by EKG criteria. Peak blood pressure was 189/113. Resting blood pressure was 157/82. Resting heart rate was 84 beats per minute. Peak heart rate is 173 beats per minute. Patient did complain of chest pain, but it was atypical. This is a negative stress test with excellent exercise capacity with atypical chest pain. MMODL / IJN: [id number] /
== END | disposition home or self-care (01) ==
LOC: RADNMMAIN 08:46
PROVIDERS: ATTEND Family Medicine
DX: R07.9 Chest pain, unspecified (principal); I10 Essential (primary) hypertension; Z82.49 Family history of ischemic heart disease and other diseases of the circulatory system; Z91.030 Bee allergy status
CPT/HCPCS: 93017

== ENCOUNTER 2019-04-23 09:00 | Emergency (ER) | payer OTHER ==
[2019-04-23 09:06] VITALS: BP 156/108; PULSE 64; TEMP 97.9
--- NOTE | 2019-04-23 09:22 | ED ---
Upper Extremity HPI - General Chief Complaint: Extremity Injury, Upper Stated Complaint: Right Wrist Time Seen by Provider: 04/23/19 09:13 Source: patient, RN notes reviewed, old records reviewed Mode of arrival: ambulatory Limitations: no limitations - History of Present Illness Initial Comments: This patient's a 33-year-old female who presents emergency department today which went of right wrist pain. She's been having symptoms since mid March. 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 Patient states she's had no fall or trauma to the wrist. Patient reports the pain seems to be more over the distal radius near the thumb and worse with pronation and flexion of the wrist. Patient reports that she has had this syndrome before and received a steroid injection in her wrist by orthopedic one time. Patient states that she has had no other significant complaints. She denies any peripheral paresthesias. - Related Data Home Medications Medication Instructions Recorded Confirmed Calcium Carbonate/Vitamin D3 1 tab PO DAILY 12/30/16 07/26/18 [Calcium 600-Vit D3 200 Tablet] Ferrous Sulfate [Feosol] 325 mg PO DAILY 09/09/17 07/26/18 Vitamin C/Biotin [Hair, Skin and 1 tab PO DAILY 09/09/17 07/26/18 Nails] Previous Rx's Medication Instructions Recorded Lisinopril [Prinivil] 20 mg PO DAILY #30 tablet 09/09/17 Ibuprofen [Motrin] 600 mg PO Q8HR PRN #30 tab 04/23/19 Allergies Allergy/AdvReac Type Severity Reaction Status Date / Time venom-honey bee Allergy Swelling Verified 04/23/19 09:04 [bee venom (honey bee)] Review of Systems ROS Statement: Those systems with pertinent positive or pertinent negative responses have been documented in the HPI. ROS Other: All systems not noted in ROS Statement are negative. Past Medical History Past Medical History: Hypertension History of Any Multi-Drug Resistant Organisms: None Reported Past Surgical History: Tubal Ligation Additional Past Surgical History / Comment(s): wisdom teeth extraction Past Psychological History: No Psychological Hx Reported Smoking Status: Never smoker Past Alcohol Use History: Rare Past Drug Use History: None Reported General Exam - General Exam Comments Initial Comments: 33-year-old female. Alert and oriented 3. Patient appears in no distress. Limitations: no limitations General appearance: alert, in no apparent distress Head exam: Present: atraumatic, normocephalic, normal inspection Eye exam: Present: normal appearance, PERRL, EOMI. Absent: scleral icterus, conjunctival injection, periorbital swelling ENT exam: Present: normal exam, mucous membranes moist Neck exam: Present: normal inspection. Absent: tenderness, meningismus, lympha denopathy Respiratory exam: Present: normal lung sounds bilaterally. Absent: respiratory distress, wheezes, rales, rhonchi, stridor Cardiovascular Exam: Present: regular rate, normal rhythm, normal heart sounds. Absent: systolic murmur, diastolic murmur, rubs, gallop, clicks GI/Abdominal exam: Present: soft, normal bowel sounds. Absent: distended, tenderness, guarding, rebound, rigid Right Elbow exam: Present: normal inspection, full ROM Forearm Wrist exam: Present: full ROM, swelling, abrasion. Absent: normal inspection Hand Wrist exam: Present: normal inspection, tenderness (distal radius). Absent: full ROM (Patient has tenderness to palpation over the distal radius, and positive Louie test.) Neuro motor exam: Present: wrist extension intact, thumb opposition intact, thumb IP flexion intact, thumb adduction intact, fingers 2-5 abduction intact Neurosensory exam: Present: 2-point discrimination, radial nerve intact, ulnar nerve intact, median nerve intact Vascular: Present: normal capillary refill Back exam: Present: normal inspection Neurological exam: Present: alert, oriented X3, CN II-XII intact Course Vital Signs 04/23/19 09:04 Temperature 97.9 F Pulse Rate 64 Respiratory 18 Rate Blood Pressure 156/108 O2 Sat by Pulse 100 Oximetry Medical Decision Making - Medical Decision Making Patient presents with right wrist and thumb pain for the past month concerned that she has had an overuse injury. She's had this before, denies any fall or trauma. Patient has positive Louie test. Clinical exam is consistent with de Quervain's tenosynovitis. Patient is advised to take anti-inflammatory medication and ice the area. Given referral for orthopedic or she may need a further steroid injection. Patient is agreeable to treatment plan will comply. Return parameters were discussed. Disposition Clinical Impression: De Quervain's disease (tenosynovitis) Disposition: HOME SELF-CARE Condition: Good Instructions (If sedation given, give patient instructions): Wrist Sprain (ED) Additional Instructions: Please use medication as discussed. Please follow up with family doctor if symptoms have not improved over the next two days. Please return to the emergency room if your symptoms increase or worsen or for any other concerns. Prescriptions: Ibuprofen [Motrin] 600 mg PO Q8HR PRN #30 tab PRN Reason: Pain Is patient prescribed a controlled substance at d/c from ED?: No Referrals: Joe Browne MD [Primary Care Provider] - 1-2 days Waqar Covarrubias PAC [PHYSICIAN BRANCH ASSISTANT] - 1-2 days Time of Disposition: 09:21
[2019-04-23 09:32] VITALS: RESP 20
== END 2019-04-23 09:33 | disposition home or self-care (01) ==
LOC: EC 09:00
DX: M65.4 Radial styloid tenosynovitis [de Quervain] (principal); I10 Essential (primary) hypertension; Z91.030 Bee allergy status
CPT/HCPCS: 99283

== ENCOUNTER 2019-09-09 20:28 | Emergency (ER) | payer OTHER ==
[2019-09-09 20:45] VITALS: BP 140/111; PULSE 94; RESP 16; TEMP 99.7
[2019-09-09] MEDS ORDERED: predniSONE 50 MG TAB PO STA (20:58)
--- NOTE | 2019-09-09 21:09 | ED ---
General Adult HPI - General Chief complaint: Wound/Laceration Stated complaint: bee sting Time Seen by Provider: 09/09/19 20:47 Source: patient, RN notes reviewed, old records reviewed Mode of arrival: ambulatory Limitations: no limitations - History of Present Illness Initial comments: 33-year-old female with history of bee sting ALLERGY presenting for evaluation of a bee sting to the right hand. This occurred at approximately noon today which was 9 hours prior to arrival. No significant dyspnea, no vomiting, no rash. Her complaint is right hand swelling. She has been taking Benadryl and has not had significant relief in the swelling in the right hand. She was started on the dorsal surface of the right hand. 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 She did not take any medication other than Benadryl. - Related Data Home Medications Medication Instructions Recorded Confirmed Calcium Carbonate/Vitamin D3 1 tab PO DAILY 12/30/16 07/26/18 [Calcium 600-Vit D3 200 Tablet] Ferrous Sulfate [Feosol] 325 mg PO DAILY 09/09/17 07/26/18 Vitamin C/Biotin [Hair, Skin and 1 tab PO DAILY 09/09/17 07/26/18 Nails] Previous Rx's Medication Instructions Recorded lisinopriL [Prinivil] 20 mg PO DAILY #30 tablet 09/09/17 Ibuprofen [Motrin] 600 mg PO Q8HR PRN #30 tab 04/23/19 EPINEPHrine (Auto Inject) [Epipen] 0.3 mg IM ONCE PRN #2 pen 09/09/19 methylPREDNISolone [Medrol Dose 4 mg PO DIRECTED #1 pack 09/09/19 Pack] Allergies Allergy/AdvReac Type Severity Reaction Status Date / Time venom-honey bee Allergy Swelling Verified 09/09/19 20:43 [bee venom (honey bee)] Review of Systems ROS Statement: Those systems with pertinent positive or pertinent negative responses have been documented in the HPI. ROS Other: All systems not noted in ROS Statement are negative. Past Medical History Past Medical History: Hypertension History of Any Multi-Drug Resistant Organisms: None Reported Past Surgical History: Tubal Ligation Additional Past Surgical History / Comment(s): wisdom teeth extraction Past Psychological History: No Psychological Hx Reported Smoking Status: Never smoker Past Alcohol Use History: Rare Past Drug Use History: None Reported General Exam Limitations: no limitations General appearance: alert, in no apparent distress Head exam: Present: atraumatic, normocephalic Eye exam: Present: normal appearance, PERRL ENT exam: Present: normal exam Neck exam: Present: normal inspection. Absent: tenderness, meningismus Respiratory exam: Present: normal lung sounds bilaterally. Absent: respiratory distress, wheezes Cardiovascular Exam: Present: regular rate, normal rhythm GI/Abdominal exam: Present: soft. Absent: distended, tenderness, guarding Extremities exam: Present: other (Soft edema to the right hand, no visualized stinger, normal range of motion, swelling stops at the wrist.) Course Vital Signs 09/09/19 20:43 Temperature 99.7 F H Pulse Rate 94 Respiratory 16 Rate Blood Pressure 140/111 O2 Sat by Pulse 99 Oximetry Medical Decision Making - Medical Decision Making 33-year-old female with swelling to the right hand after being stung by a bee. There is no sign of anaphylaxis. This occurred 9 hours prior to arrival. She's given a single dose of prednisone in the emergency department. She will oniel nue Benadryl at home. I will prescribe a Medrol Dosepak. She will ice and elevate her hand. I did additionally refill her EpiPen. Disposition Clinical Impression: Bee sting reaction Disposition: HOME SELF-CARE Condition: Good Instructions (If sedation given, give patient instructions): Insect Bite or Sting (ED) Prescriptions: EPINEPHrine (Auto Inject) [Epipen] 0.3 mg IM ONCE PRN #2 pen PRN Reason: Anaphylaxis methylPREDNISolone [Medrol Dose Pack] 4 mg PO DIRECTED #1 pack Is patient prescribed a controlled substance at d/c from ED?: No Referrals: Joe Browne MD [Primary Care Provider] - 1-2 days Time of Disposition: 21:07
== END 2019-09-09 21:28 | disposition home or self-care (01) ==
LOC: EC 20:28
DX: T63.441A Toxic effect of venom of bees, accidental (unintentional), initial encounter (principal); Z91.030 Bee allergy status
CPT/HCPCS: 99283; J7512

== ENCOUNTER 2019-11-24 05:58 | Day surgery (SDC) | payer OTHER ==
[2019-11-22 14:37] VITALS: BMI 25.7
--- NOTE | 2019-11-23 16:23 | HP ---
HISTORY AND PHYSICAL DATE OF SURGERY: 11/24/2019 Lucinda Donnelly is a 34-year-old patient seen with persistent symptomatic right wrist de Quervain tendinitis. We discussed treatment options. Given her failure with conservative treatment and after reviewing surgical intervention, she was agreeable. Consent was obtained. PAST MEDICAL HISTORY: Hypertension. PAST SURGICAL HISTORY: Tubal ligation. DAILY MEDICATIONS: Lisinopril. ALLERGIES: NONE. SOCIAL HISTORY: She denies current tobacco use. PHYSICAL EVALUATION OF THE RIGHT WRIST: She is tender along the first dorsal compartment. Positive Louie's. Negative carpal Tinel's. Good perfusion and sensation distally. RADIOGRAPHS: Right wrist radiographs reveal some calcification along the radial side of the distal radius. IMPRESSION: 1. Right wrist de Quervain tendinitis. 2. Hypertension. PLAN: Release first dorsal compartment, right wrist. MMANNA / IJN: [id number] /
[~2019-11-24 05:58] MED LIST: DEXAMETHASONE SOD PHOSPHATE 10 MG/ML 1 ML VIAL IV ONE; HYDROmorphone 0.5 MG/0.5 ML SYRINGE IVP PRN; LACTATED RINGERS 1,000 ML IV SCH; ONDANSETRON 4 MG/2 ML VIAL IVP ONE
[2019-11-24 06:19] VITALS: TEMP 97.9
[2019-11-24] MEDS ORDERED: LACTATED RINGERS 1,000 ML IV ONE (06:32)
[2019-11-24] MEDS ORDERED: LIDOCAINE 1% (10MG/ML) FOR IV START INTRADERMA ONE (06:32)
[2019-11-24] MEDS ORDERED: LIDOCAINE 1% INJ 10MG/ML (20 ML MDV) SQ ONE ×2 (07:27)
[2019-11-24] MEDS ORDERED: MIDAZOLAM 2 MG/2 ML VIAL ONE (07:48)
[2019-11-24] MEDS ORDERED: PROPOFOL 10 MG/ML 20 ML VIAL IV ONE (07:48)
[2019-11-24] MEDS ORDERED: fentaNYL (PF) 50 MCG/ML 2 ML AMP ONE (07:48)
[2019-11-24 08:23] VITALS: RESP 16
--- NOTE | 2019-11-24 08:23 | P.OP ---
Date of Procedure: 11/24/19 Preoperative Diagnosis: Right wrist de Quervain's tendinitis Postoperative Diagnosis: Same Procedure(s) Performed: Release first dorsal compartment right wrist Anesthesia: MAC, local Surgeon: Reinier Villalba Estimated Blood Loss (ml): 1 Pathology: none sent Condition: stable Disposition: PACU Indications for Procedure: 34-year-old patient seen with persistent symptomatic right wrist de Quervain's tendinitis failing conservative treatment measures. She elected to proceed with surgical release of the first dorsal compartment. Operative Findings: see description of procedure Description of Procedure: Patient was taken to the operative suite. Patient received preoperative IV antibiotics. Well-padded tourniquet placed proximal right upper extremity. Right upper extremity prepped and draped in the normal sterile orthopedic fashion. The patient received sedation by the department of anesthesia. The proposed incision site was infiltrated with 8 mL quarter percent plain Marcaine. Once sufficient local analgesia was noted the extremity is elevated and tourniquet insufflated to 250. Incision the area of the first dorsal compartment. I carefully dissected down to the first was compartment. I made sure to protect the radial sensory nerve. I now made a small incision through the first dorsal compartment. I now completed the release of first compartment proximal and distal blunt tenotomies. There was complete release of first dorsal compartment. There was good hemostasis. The wound was irrigated. The skin margins were approximated with nylon suture. I applied sterile dressings. The tourniquet was now released and immediate capillary refill the entire hand and digits noted. The patient was then awakened and transferred to recovery stable condition.
[2019-11-24 08:51] VITALS: BP 106/73; PULSE 67
== END 2019-11-24 08:57 | disposition home or self-care (01) ==
LOC: OR 05:58
PROVIDERS: ATTEND Orthopaedic Surgery
DX: M65.4 Radial styloid tenosynovitis [de Quervain] (principal); I10 Essential (primary) hypertension; Z98.51 Tubal ligation status; Z97.2 Presence of dental prosthetic device (complete) (partial); Z79.899 Other long term (current) drug therapy
CPT/HCPCS: 81025; 25000; J2250; J1100; J2405; J0690; J2001; J3010; J2704

== ENCOUNTER → 2019-12-14 | Outpatient (CLI) | payer OTHER | END | disposition home or self-care (01) | LOC: LABWHC1 12:36 | PROVIDERS: ATTEND Family Medicine | DX: Z03.818 Encounter for observation for suspected exposure to other biological agents ruled out (principal) | CPT/HCPCS: U0003; C9803 ==

== ENCOUNTER → 2020-06-20 | Outpatient (CLI) | payer OTHER ==
--- NOTE | 2020-06-20 09:23 | XR ---
EXAMINATION TYPE: XR knee 4V LT DATE OF EXAM: 06/20/2020 CLINICAL HISTORY: pain TECHNIQUE: 4 views of the left knee are obtained. COMPARISON: None. FINDINGS: There is no acute fracture/dislocation. The tri-compartment joint spaces appear within no rmal limits. The overlying soft tissue appears unremarkable. IMPRESSION: There is no acute fracture or dislocation ICD 10 NO FRACTURE, INITIAL EVALUATION
== END | disposition home or self-care (01) ==
LOC: RADXRMAIN 08:18
PROVIDERS: ATTEND Nurse Practitioner Family
DX: M25.562 Pain in left knee (principal)

== ENCOUNTER → 2021-01-14 | Outpatient (CLI) | payer OTHER ==
--- NOTE | 2021-01-14 09:19 | XR ---
EXAMINATION TYPE: XR Hip Complete LT DATE OF EXAM: 01/14/2021 CLINICAL HISTORY: pain TECHNIQUE: AP and frogleg views of the left hip are obtained. COMPARISON: None. FINDINGS: There is no acute fracture/dislocation evident. The joint space appears within normal li mits. The overlying soft tissue appears unremarkable. IMPRESSION: 1. There is no acute fracture or dislocation.ICD 10 NO FRACTURE, INITIAL EVALUATION
== END | disposition home or self-care (01) ==
LOC: RADXRMAIN 08:55
PROVIDERS: ATTEND Nurse Practitioner Family
DX: M25.552 Pain in left hip (principal)
CPT/HCPCS: 73502

== ENCOUNTER → 2021-01-21 | Outpatient (CLI) | payer OTHER ==
--- NOTE | 2021-01-21 09:12 | US ---
EXAMINATION TYPE: US pelvis complete transvag DATE OF EXAM: 01/21/2021 COMPARISON: NONE CLINICAL HISTORY: R10.2 Pelvic Pain. Left sided pelvic pain for 3 months TECHNIQUE: Transvaginal (TV) and Transabdominal (TA) . Transabdominal sonographic images of the pel vis were acquired. Transvaginal sonographic images were medically necessary to better assess the fol lowing anatomy: Ovaries Date of LMP: 01/03/2021 EXAM MEASUREMENTS: Uterus: 9.0x4.6x4.0 cm Endometrial Stripe: 1.4 cm Right Ovary: 2.4x2.2x1.8 cm Left Ovary: 3.1x3.7x3.6 cm Debris seen within bladder 1. Uterus: Anteverted wnl 2. Endometrium: wnl 3. Right Ovary: Complex cyst 1.0x1.1x0.8cm 4. Left Ovary: 2.7x3.1x3.2cm Simple cyst 5. Bilateral Adnexa: Large amount of bowel noted 6. Posterior cul-de-sac: wnl Urinary bladder is sonolucent. IMPRESSION: 1. Small Complex right ovarian cyst. Consider follow-up examination in 6 weeks following the next nor mal menstrual period.
== END | disposition home or self-care (01) ==
LOC: RADUSWWP 08:19
PROVIDERS: ATTEND Family Medicine
DX: N83.201 Unspecified ovarian cyst, right side (principal)
CPT/HCPCS: 76830; 76856; 93976

== ENCOUNTER → 2021-03-04 | Outpatient (CLI) | payer OTHER ==
--- NOTE | 2021-03-04 09:35 | US ---
EXAMINATION TYPE: US pelvis complete transvag DATE OF EXAM: 03/04/2021 COMPARISON: US Pelvis 01/21/2021 CLINICAL HISTORY: N83.201 Unspecified ovarian cyst, right side. Ovarian cyst TECHNIQUE: Transvaginal (TV) and Transabdominal (TA) . Transabdominal sonographic images of the pel vis were acquired. Transvaginal sonographic images were medically necessary to better assess the fol lowing anatomy: Ovaries Date of LMP: 02/24/2021 EXAM MEASUREMENTS: Uterus: 8.3 x 3.7 x 6.0 cm Endometrial Stripe: 0.54 cm Right Ovary: 2.7 x 2.2 x 2.3 cm Left Ovary: 3.2 x 1.5 x 2.2 cm 1. Uterus: Anteverted Slightly heterogenous 2. Endometrium: Appears wnl 3. Right Ovary: Follicles seen; no evidence of previously seen cyst. 4. Left Ovary: Appears wnl 5. Bilateral Adnexa: Obscured by overlying bowel gas; Right adnexa/ anterior cul-de-sac free fluid seen 8.7 cm pocket 6. Posterior cul-de-sac: wnl Heterogeneous anteverted uterus with endometrial stripe measuring within normal limits. Focal moderat e amount of free fluid in the right pelvis on current study. Both ovaries seen with scattered peripheral follicles. Prior visualized 3.2 cm thin-walled cystic les ion left ovary not clearly seen on current study. IMPRESSION: Interval resolution of 3.2 cm left ovarian thin-walled cyst. No suspicious adnexal masses currently.
== END | disposition home or self-care (01) ==
LOC: RADUSWWP 08:27
PROVIDERS: ATTEND Family Medicine
DX: N83.201 Unspecified ovarian cyst, right side (principal)
CPT/HCPCS: 76830; 76856

== ENCOUNTER → 2021-09-05 | Outpatient (CLI) | payer OTHER ==
--- NOTE | 2021-09-05 16:28 | XR ---
EXAMINATION TYPE: XR foot complete RT DATE OF EXAM: 09/05/2021 COMPARISON: NONE HISTORY: 35-year-old female [id number], right heel pain TECHNIQUE: 3 views FINDINGS: Tiny plantar heel spur. Small os peroneum. No acute fracture, subluxation, or dislocation is seen. IMPRESSION: Tiny plantar heel spur. No acute osseous abnormality seen.
== END | disposition home or self-care (01) ==
LOC: RADXRYALE 14:53
PROVIDERS: ATTEND Nurse Practitioner Family
DX: M77.8 Other enthesopathies, not elsewhere classified (principal); M79.671 Pain in right foot

== ENCOUNTER 2022-08-03 22:31 | Emergency (ER) | payer OTHER ==
[2022-08-03 22:59] VITALS: TEMP 97.9
[2022-08-03 23:18] LABS: Appearance,Urine Cloudy (Clear); Bacteria,Urine Rare /hpf; Bilirubin,Urine Negative (Negative); Blood,Urine Negative (Negative); Color,Urine Light Yellow; Glucose,Urine (UA) Negative (Negative); Ketones,Urine Negative (Negative); Leukocyte Esterase,Urine Trace (Negative); Mucus,Urine Rare /hpf; Nitrite,Urine Negative (Negative); Protein,Urine Negative (Negative); RBC,Urine 1 /hpf (0-5); Specific Gravity,Urine 1.015 (1.001-1.035); Squamous Epithelial Cell,Urine 5 /hpf (0-4); Urobilinogen,Urine <2.0 mg/dL (<2.0); WBC,Urine 3 /hpf (0-5)
[2022-08-03 23:50] LABS: Basophils % (A) 1 %; Eosinophils # (A) 0.2 k/uL (0-0.7); Eosinophils % (A) 3 %; HCT 42.7 % (34.0-46.0); HGB 14.1 gm/dL (11.4-16.0); Lymphocytes # (A) 2.2 k/uL (1.0-4.8); Lymphocytes % (A) 29 %; MCH 31.2 pg (25.0-35.0); MCV 94.5 fL (80.0-100.0); Mean Platelet Volume 8.1; Monocytes # (A) 0.5 k/uL (0-1.0); Monocytes % (A) 7 %; Neutrophils # (A) 4.5 k/uL (1.3-7.7); Neutrophils % (A) 59 %; Platelet Count 218 k/uL (150-450); RBC 4.51 m/uL (3.80-5.40); RDW 12.2 % (11.5-15.5); WBC 7.6 k/uL (3.8-10.6)
[2022-08-04 00:09] LABS: ALT 25 U/L (4-34); AST 27 U/L (14-36); African American GFR (CKD) >90 (>60 ml/min/1.73 sqM); Albumin 3.8 g/dL (3.5-5.0); Alkaline Phosphatase 70 U/L (38-126); Anion Gap 7 mmol/L; Blood Urea Nitrogen 16 mg/dL (7-17); Calcium 9.1 mg/dL (8.4-10.2); Carbon Dioxide 25 mmol/L (22-30); Chloride 104 mmol/L (98-107); Glucose 80 mg/dL (74-99); Non-African American GFR(CKD) >90 (>60 ml/min/1.73 sqM); Potassium 4.2 mmol/L (3.5-5.1); Sodium 136 mmol/L (137-145); Total Bilirubin 0.4 mg/dL (0.2-1.3); Total Protein 6.5 g/dL (6.3-8.2)
[2022-08-04 00:22] LABS: Glucose,Whole Blood 90 mg/dL (70-110)
[2022-08-04] MEDS ORDERED: KETOROLAC 15 MG/ML 1 ML VIAL IVP STA (00:35)
[2022-08-04] MEDS ORDERED: SODIUM CHLORIDE 0.9% 1,000 ML IV STA (00:35)
[2022-08-04] MEDS ORDERED: DEXAMETHASONE SOD PHOSPHATE 10 MG/ML 1 ML VIAL IVP STA (00:35)
[2022-08-04] MEDS ORDERED: diphenhydrAMINE 50 MG/ML 1 ML VIAL IVP STA (00:35)
[2022-08-04] MEDS ORDERED: METOCLOPRAMIDE 5 MG/ML 2 ML VIAL IVP STA (00:35)
--- NOTE | 2022-08-04 01:47 | ED ---
Headache HPI - General Chief Complaint: Headache Stated Complaint: Dizziness, Headache Time Seen by Provider: 08/04/22 00:24 Mode of arrival: ambulatory Limitations: no limitations - History of Present Illness Initial Comments: 36-year-old female presenting with chief complaint of headache. Headache is 9 point last day. She also admits to intermittent dizziness. No head injury or trauma. No fever, chills, nausea, vomiting, numbness, tingling, weakness, chest pain, difficulty breathing, vision or hearing changes. - Related Data Home Medications Medication Instructions Recorded Confirmed Calcium Carbonate/Vitamin D3 1 tab PO DAILY 12/30/16 11/22/19 [Calcium 600-Vit D3 200 Tablet] Ferrous Sulfate [Feosol] 325 mg PO DAILY 09/09/17 11/22/19 Vitamin C/Biotin [Hair, Skin and 1 tab PO DAILY 09/09/17 11/22/19 Nails] Cranberry Fruit Extract [Cranberry] 200 mg PO DAILY 11/22/19 11/22/19 Garlic 1 each PO DAILY 11/22/19 11/22/19 Previous Rx's Medication Instructions Recorded lisinopriL [Prinivil] 20 mg PO DAILY #30 tablet 09/09/17 EPINEPHrine (Auto Inject) [Epipen] 0.3 mg IM ONCE PRN #2 pen 09/09/19 traMADol HCl [Ultram] 50 mg PO Q6H PRN #12 tab 11/24/19 Allergies Allergy/AdvReac Type Severity Reaction Status Date / Time venom-honey bee Allergy Swelling Verified 08/03/22 22:58 [bee venom (honey bee)] Review of Systems ROS Statement: Those systems with pertinent positive or pertinent negative responses have been documented in the HPI. ROS Other: All systems not noted in ROS Statement are negative. Past Medical History Past Medical History: Hypertension History of Any Multi-Drug Resistant Organisms: None Reported Past Surgical History: Tubal Ligation Additional Past Surgical History / Comment(s): wisdom teeth extraction Past Anesthesia/Blood Transfusion Reactions: No Reported Reaction Past Psychological History: No Psychological Hx Reported Smoking Status: Never smoker Past Alcohol Use History: None Reported Past Drug Use History: None Reported - Past Family History Mother Family Medical History: No Reported History General Exam Limitations: no limitations General appearance: alert, in no apparent distress Head exam: Present: atraumatic, normocephalic, normal inspection Eye exam: Present: normal appearance, PERRL, EOMI. Absent: scleral icterus, periorbital swelling Neck exam: Present: normal inspection, full ROM Respiratory exam: Present: normal lung sounds bilaterally. Absent: respiratory distress, wheezes, rales, rhonchi, stridor Cardiovascular Exam: Present: regular rate, normal rhythm, normal heart sounds. Absent: systolic murmur, diastolic murmur, rubs, gallop, clicks Neurological exam: Present: alert, oriented X3, CN II-XII intact Expanded Patient oriented to: Present: person, place, time Speech: Present: fluid speech Cranial nerves: EOM's Intact: Normal Motor strength exam: RUE: 5, LUE: 5, RLE: 5, LLE: 5 Eye Response: (4) open spontaneously Motor Response: (6) obeys commands Verbal Response: (5) oriented Adams Total: 15 Psychiatric exam: Present: normal affect, normal mood Skin exam: Present: warm, dry, intact, normal color. Absent: rash Course Vital Signs 08/03/22 08/04/22 22:56 01:57 Temperature 97.9 F 97.9 F Pulse Rate 67 64 Respiratory 18 16 Rate Blood Pressure 131/94 129/72 O2 Sat by Pulse 99 97 Oximetry Medical Decision Making - Medical Decision Making Was pt. sent in by a medical professional or institution ([facility], [facility], urgent care, hospital, or [facility]...) When possible be specific @ -No Did you speak to anyone other than the patient for history (EMS, parent, family, police, friend...)? What history was obtained from this source @ -No Did you review nursing and triage notes (agree or disagree)? Why? @ -I reviewed and agree with nursing and triage notes Were old charts reviewed (outside hosp., previous admission, EMS record, old EKG, old radiological studies, urgent care reports/EKG's, [facility] records)? Report findings @ -No old charts were reviewed Differential Diagnosis (chest pain, altered mental status, abdominal pain women, abdominal pain men, vaginal bleeding, weakness, fever, dyspnea, syncope, headache, dizziness, GI bleed, back pain, seizure, CVA, palpatations, mental health, musculoskeletal)? @ -[facility] Differential Headache: Migraine, tension, cluster, carbon monoxide, central venous thrombosis, pension karma temporal arteritis, acute closure glaucoma, intercranial hemorrhage, masto iditis, sinusitis, head injury this is not meant to be an all-inclusive list. EKG interpreted by me (3pts min.). @ -Sinus rhythm ventricular rate 62. CT interval 176. QRS 97. QT 425. QTC 431. No ischemic changes. X-rays interpreted by me (1pt min.). @ -None done CT interpreted by me (1pt min.). @ -None done U/S interpreted by me (1pt. min.). @ -None done What testing was considered but not performed or refused? (CT, X-rays, U/S, labs)? Why? @ -None What meds were considered but not given or refused? Why? @ -None Did you discuss the management of the patient with other professionals (professionals i.e. , PA, [facility], lab, RT, psych nurse, social insurance adviser, counter dish carrier, teacher, chief quality officer, welfare case worker)? Give summary @ -No Was smoking cessation discussed for >3mins.? @ -No Was critical care preformed (if so, how long)? @ -No Were there social determinants of health that impacted care today? How? (Homelessness, low income, unemployed, alcoholism, drug addiction, transportation, low edu. Level, literacy, decrease access to med. care, care home, rehab)? @ -No Was there de-escalation of care discussed even if they declined (Discuss DNR or withdrawal of care, Hospice)? DNR status @ -No What co-morbidities impacted this encounter? (DM, HTN, Smoking, COPD, CAD, Cancer, CVA, ARF, Chemo, Hep., AIDS, mental health diagnosis, sleep apnea, morbid obesity)? @ -None Was patient admitted / discharged? Hospital course, mention meds given and route, prescriptions, significant lab abnormalities, going to OR and other perti nent info. @ -36-year-old female presenting with chief complaint of headache and intermittent dizziness. On physical examination there are no focal neurological deficits. Lab work is essentially unremarkable she reports improvement after migraine cocktail. She is educated on supportive management at home. Follow-up with PCP. Report back to ER with any new or worsening symptoms. Discussed return parameters and answered all questions. Patient conveyed verbal understanding and agreed to the plan. I discussed this case in detail with my attending Dr. Estrada Undiagnosed new problem with uncertain prognosis? @ -No Drug Therapy requiring intensive monitoring for toxicity (Heparin, Nitro, Insulin, Cardizem)? @ -No Were any procedures done? @ -No Diagnosis/symptom? @ -Headache Acute, or Chronic, or Acute on Chronic? @ -Acute Uncomplicated (without systemic symptoms) or Complicated (systemic symptoms)? @ -Uncomplicated Side effects of treatment? @ -No Exacerbation, Progression, or Severe Exacerbation? @ -No Poses a threat to life or bodily function? How? (Chest pain, [place], [place], pneumonia, PE, COPD, DKA, ARF, appy, cholecystitis, CVA, Diverticulitis, Homicidal, Suicidal, threat to staff... and all critical care pts) @ -No - Lab Data Result diagrams: 08/03/22 23:19 08/03/22 23:19 Lab Results 08/03/22 08/03/22 08/03/22 Range/Units 23:00 23:19 23:19 WBC 7.6 (3.8-10.6) k/uL RBC 4.51 (3.80-5.40) m/uL Hgb 14.1 (11.4-16.0) gm/dL Hct 42.7 (34.0-46.0) % MCV 94.5 (80.0-100.0) fL MCH 31.2 (25.0-35.0) pg MCHC 33.0 (31.0-37.0) g/dL RDW 12.2 (11.5-15.5) % Plt Count 218 (150-450) k/uL MPV 8.1 Neutrophils % 59 % Lymphocytes % 29 % Monocytes % 7 % Eosinophils % 3 % Basophils % 1 % Neutrophils # 4.5 (1.3-7.7) k/uL Lymphocytes # 2.2 (1.0-4.8) k/uL Monocytes # 0.5 (0-1.0) k/uL Eosinophils # 0.2 (0-0.7) k/uL Basophils # 0.0 (0-0.2) k/uL Sodium 136 L (137-145) mmol/L Potassium 4.2 (3.5-5.1) mmol/L Chloride 104 (98-107) mmol/L Carbon Dioxide 25 (22-30) mmol/L Anion Gap 7 mmol/L BUN 16 (7-17) mg/dL Creatinine 0.83 (0.52-1.04) mg/dL Est GFR (CKD-EPI)AfAm >90 (>60 ml/min/1.73 sqM) Est GFR (CKD-EPI)NonAf >90 (>60 ml/min/1.73 sqM) Glucose 80 (74-99) mg/dL POC Glucose (mg/dL) (70-110) mg/dL POC Glu Jerker ID Calcium 9.1 (8.4-10.2) mg/dL Total Bilirubin 0.4 (0.2-1.3) mg/dL AST 27 (14-36) U/L ALT 25 (4-34) U/L Alkaline Phosphatase 70 (38-126) U/L Total Protein 6.5 (6.3-8.2) g/dL Albumin 3.8 (3.5-5.0) g/dL Urine Color Light Yellow Urine Appearance Cloudy H (Clear) Urine pH 7.0 (5.0-8.0) Ur Specific [place] 1.015 (1.001-1.035) Urine Protein Negative (Negative) Urine Glucose (UA) Negative (Negative) Urine Ketones Negative (Negative) Urine Blood Negative (Negative) Urine Nitrite Negative (Negative) Urine Bilirubin Negative (Negative) Urine Urobilinogen <2.0 (<2.0) mg/dL Ur Leukocyte Esterase Trace H (Negative) Urine RBC 1 (0-5) /hpf Urine WBC 3 (0-5) /hpf Ur Squamous Epith Cells 5 H (0-4) /hpf Urine Bacteria Rare H (None) /hpf Urine Mucus Rare H (None) /hpf 08/04/22 Range/Units 00:20 WBC (3.8-10.6) k/uL RBC (3.80-5.40) m/uL Hgb (11.4-16.0) gm/dL Hct (34.0-46.0) % MCV (80.0-100.0) fL MCH (25.0-35.0) pg MCHC (31.0-37.0) g/dL RDW (11.5-15.5) % Plt Count (150-450) k/uL MPV Neutrophils % % Lymphocytes % % Monocytes % % Eosinophils % % Basophils % % Neutrophils # (1.3-7.7) k/uL Lymphocytes # (1.0-4.8) k/uL Monocytes # (0-1.0) k/uL Eosinophils # (0-0.7) k/uL Basophils # (0-0.2) k/uL Sodium (137-145) mmol/L Potassium (3.5-5.1) mmol/L Chloride (98-107) mmol/L Carbon Dioxide (22-30) mmol/L Anion Gap mmol/L BUN (7-17) mg/dL Creatinine (0.52-1.04) mg/dL Est GFR (CKD-EPI)AfAm (>60 ml/min/1.73 sqM) Est GFR (CKD-EPI)NonAf (>60 ml/min/1.73 sqM) Glucose (74-99) mg/dL POC Glucose (mg/dL) 90 (70-110) mg/dL POC Glu Jerker ID [place] Calcium (8.4-10.2) mg/dL Total Bilirubin (0.2-1.3) mg/dL AST (14-36) U/L ALT (4-34) U/L Alkaline Phosphatase (38-126) U/L Total Protein (6.3-8.2) g/dL Albumin (3.5-5.0) g/dL Urine Color Urine Appearance (Clear) Urine pH (5.0-8.0) Ur Specific [place] (1.001-1.035) Urine Protein (Negative) Urine Glucose (UA) (Negative) Urine Ketones (Negative) Urine Blood (Negative) Urine Nitrite (Negative) Urine Bilirubin (Negative) Urine Urobilinogen (<2.0) mg/dL Ur Leukocyte Esterase (Negative) Urine RBC (0-5) /hpf Urine WBC (0-5) /hpf Ur Squamous Epith Cells (0-4) /hpf Urine Bacteria (None) /hpf Urine Mucus (None) /hpf Disposition Clinical Impression: Headache Disposition: HOME SELF-CARE Condition: Good Instructions (If sedation given, give patient instructions): Acute Headache (ED) Additional Instructions: Follow-up with PCP. Report back to ER with any new or worsening symptoms. Is patient prescribed a controlled substance at d/c from ED?: No Referrals: Emmie Gates NPC [Primary Care Provider] - 1-2 days Time of Disposition: 01:47
[2022-08-04 01:58] VITALS: BP 129/72; PULSE 64; RESP 16
== END 2022-08-04 01:58 | disposition home or self-care (01) ==
LOC: EC 22:31
DX: R51.9 Headache, unspecified (principal); I10 Essential (primary) hypertension; Z91.030 Bee allergy status; Z79.899 Other long term (current) drug therapy
CPT/HCPCS: 36415; 80053; 81001; 85025; 93005; 96361; 96374; 96375; 99284

== ENCOUNTER → 2022-10-09 | Outpatient (CLI) | payer OTHER ==
--- NOTE | 2022-10-09 17:07 | US ---
EXAMINATION TYPE: US pelvic complete DATE OF EXAM: 10/09/2022 COMPARISON: US pelvis 03/04/2021 CLINICAL INDICATION: Female, 37 years old with history of R10.2 PELVIC PAIN; TECHNIQUE: Transabdominal (TA). Date of LMP: 10/08/22 EXAM MEASUREMENTS: Uterus: 7.9 x 4.2 x 5.1 cm Endometrial Stripe: 0.65 cm Right Ovary: 2.6 x 1.4 x 2.3 cm Left Ovary: 2.7 x 2.2 x 2.6 cm 1. Uterus: Anteverted Hyperechoic mass measuring 2.7 x 3.6 x 2.9 cm 2. Endometrium: wnl 3. Right Ovary: wnl 4. Left Ovary: wnl 5. Bilateral Adnexa: wnl 6. Posterior cul-de-sac: wnl No free fluid. Both ovaries are unremarkable. Endometrium is within normal limits. 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 No internal color flow. IMPRESSION: Hyperechoic uterine fundal mass measuring up to 3.6 cm. Etiologies include lipoleiomyoma versus other etiologies such as a teratoma. Further evaluation with MRI pelvis is recommended.
== END | disposition home or self-care (01) ==
LOC: RADUSWWP 16:16
PROVIDERS: ATTEND Family Medicine
DX: N85.8 Other specified noninflammatory disorders of uterus (principal)
CPT/HCPCS: 76856

== ENCOUNTER 2023-02-01 18:52 | Emergency (ER) | payer OTHER ==
[2023-02-01 19:36] VITALS: BP 186/131; PULSE 68; RESP 18; TEMP 98.5
--- NOTE | 2023-02-01 19:43 | XR ---
EXAMINATION TYPE: XR knee limited bilateral DATE OF EXAM: 02/01/2023 COMPARISON: NONE HISTORY: 37-year-old female with bilateral knee pain and swelling, left greater than right TECHNIQUE: 2 views each side FINDINGS: No acute fracture, subluxation, dislocation. No significant joint effusion on either side. IMPRESSION: No acute osseous abnormality seen. If symptoms persist, consider MRI.
[2023-02-01 20:15] LABS: HCT 41.4 % (34.0-46.0); HGB 13.6 gm/dL (11.4-16.0); MCH 29.9 pg (25.0-35.0); MCHC 32.8 g/dL (31.0-37.0); MCV 91.2 fL (80.0-100.0); Mean Platelet Volume 8.6; Platelet Count 221 k/uL (150-450); RBC 4.54 m/uL (3.80-5.40); RDW 13.2 % (11.5-15.5); WBC 7.3 k/uL (3.8-10.6)
[2023-02-01] MEDS ORDERED: KETOROLAC 15 MG/ML 1 ML VIAL IVP STA (20:17)
[2023-02-01 20:23] LABS: INR 0.9 (<1.2); Partial Thromboplastin Time 23.6 sec (22.0-30.0); Prothrombin Time 10.3 sec (10.0-12.5)
--- NOTE | 2023-02-01 20:23 | ED ---
General Adult HPI - General Chief complaint: Extremity Problem,Nontraumatic Stated complaint: water in legs, knee pain Time Seen by Provider: 02/01/23 19:10 Source: patient, RN notes reviewed, old records reviewed Mode of arrival: ambulatory Limitations: no limitations - History of Present Illness Initial comments: Patient is a 37-year-old female presents emergency Department complaining of bilateral lower extremity swelling. Denies any shortness breath, chest pain. Denies any fevers or chills. Denies any cough. Denies any sick contacts. Denies any recent long distance travel or pain in her legs. Does have chronic pain in her knees. States swelling has gotten noticeably worse since last . No history of blood clots. Is symmetrical. Denies shortness of breath or chest pain. His no other acute complaints. States she does have a history of anxiety as well as high blood pressure. Presents over concern for the swelling in her legs. Denies any fevers or chills or skin changes. - Related Data Home Medications Medication Instructions Recorded Confirmed Calcium Carbonate/Vitamin D3 1 tab PO DAILY 12/30/16 11/22/19 [Calcium 600-Vit D3 200 Tablet] Ferrous Sulfate [Feosol] 325 mg PO DAILY 09/09/17 11/22/19 Vitamin C/Biotin [Hair, Skin and 1 tab PO DAILY 09/09/17 11/22/19 Nails] Cranberry Fruit Extract [Cranberry] 200 mg PO DAILY 11/22/19 11/22/19 Garlic 1 each PO DAILY 11/22/19 11/22/19 Previous Rx's Medication Instructions Recorded lisinopriL [Prinivil] 20 mg PO DAILY #30 tablet 09/09/17 EPINEPHrine (Auto Inject) [Epipen] 0.3 mg IM ONCE PRN #2 pen 09/09/19 traMADol HCl [Ultram] 50 mg PO Q6H PRN #12 tab 11/24/19 Allergies Allergy/AdvReac Type Severity Reaction Status Date / Time venom-honey bee Allergy Swelling Verified 02/01/23 18:58 [bee venom (honey bee)] Review of Systems ROS Statement: Those systems with pertinent positive or pertinent negative responses have been documented in the HPI. Review of Systems: CONST: Denies fever EYES: Denies blurry vision ENT: Denies nasal congestion C/V: Denies Chest pain RESP: Denies shortness of breath GI: Denies abdominal pain : Denies dysuria SKIN: Denies rash. MSK: Denies joint pain. NEURO: Denies headache ROS Other: All systems not noted in ROS Statement are negative. Past Medical History Past Medical History: Hypertension History of Any Multi-Drug Resistant Organisms: None Reported Past Surgical History: Tubal Ligation Additional Past Surgical History / Comment(s): wisdom teeth extraction Past Anesthesia/Blood Transfusion Reactions: No Reported Reaction Past Psychological History: No Psychological Hx Reported Smoking Status: Never smoker Past Alcohol Use History: None Reported Past Drug Use History: None Reported - Past Family History Mother Family Medical History: No Reported History General Exam - General Exam Comments Initial Comments: General: Appears in no acute distress. HEAD: Normal with no signs of head trauma. EYES: PERRLA, EOMI, conjunctiva normal, no discharge. ENT: Hearing grossly intact, normal oropharynx. RESPIRATORY: Clear breath sounds bilaterally. No wheezes, rales, or rhonchi. C/V: Regular rate and rhythm. S1 and S2 auscultated, no edema, peripheral pulses 2+ and intact throughout ABD: Abd is soft, nontender, nondistended EXT: Normal range of motion, no obvious deformity. No focal tenderness to palpation of the knees. She does have edema of the bilateral lower extremities is symmetrical. SKIN: No rashes or lesions observed on exposed skin. NEURO: Alert and oriented x 4. Limitations: no limitations Course Vital Signs 02/01/23 18:55 Temperature 98.5 F Pulse Rate 68 Respiratory 18 Rate Blood Pressure 186/131 O2 Sat by Pulse 98 Oximetry Medical Decision Making - Medical Decision Making Was pt. sent in by a medical professional or institution (, PA, LICENSING SPECIALIST, urgent care, hospital, or [facility]...) When possible be specific @ -No Did you speak to anyone other than the patient for history (EMS, parent, family, police, friend...)? What history was obtained from this source @ -No Did you review nursing and triage notes (agree or disagree)? Why? @ -I reviewed and agree with nursing and triage notes Were old charts reviewed (outside hosp., previous admission, EMS record, old EKG, old radiological studies, urgent care reports/EKG's, [facility] records)? Report findings @ -Old charts reviewed Differential Diagnosis (chest pain, altered mental status, abdominal pain women, abdominal pain men, vaginal bleeding, weakness, fever, dyspnea, syncope, headache, dizziness, GI bleed, back pain, seizure, CVA, palpatations, mental health, musculoskeletal)? @ -DVT, CHF, infection, dependent edema. This list is not all-inclusive. EKG interpreted by me (3pts min.). @ -As above X-rays interpreted by me (1pt min.). @ -Chest x-ray shows no obvious acute cardio pulmonary process. No evidence of CHF. CT interpreted by me (1pt min.). @ -None done U/S interpreted by me (1pt. min.). @ -Lower extremity ultrasound negative for DVT and left lower extremity and right lower extremity. What testing was considered but not performed or refused? (CT, X-rays, U/S, labs)? Why? @ -None What meds were considered but not given or refused? Why? @ -None Did you discuss the management of the patient with other professionals (professionals i.e. , PA, LICENSING SPECIALIST, lab, RT, psych nurse, psychiatric social worker, managed care liaison, teacher, juvenile officer, rn case management)? Give summary @ -No Was smoking cessation discussed for >3mins.? @ -No Was critical care preformed (if so, how long)? @ -No Were there social determinants of health that impacted care today? How? (Homelessness, low income, unemployed, alcoholism, drug addiction, transportation, low edu. Level, literacy, decrease access to med. care, assisted, rehab)? @ -No Was there de-escalation of care discussed even if they declined (Discuss DNR or withdrawal of care, Hospice)? DNR status @ -No What co-morbidities impacted this encounter? (DM, HTN, Smoking, COPD, CAD, Cancer, CVA, ARF, Chemo, Hep., AIDS, mental health diagnosis, sleep apnea, morbid obesity)? @ -None Was patient admitted / discharged? Hospital course, mention meds given and route, prescriptions, significant lab abnormalities, going to OR and other pertinent info. @ -Based on the patient's presentation and physical exam, presents with symmetrical bilateral lower extremity edema. Unknown etiology. Patiently worked up for this. This includes ultrasound of the lower extremities, chest x- ray, BNP. Patient agreement with this plan. Vital signs within acceptable limits.No concern for PE at this time as the patient denies any dyspnea, shortness breath. No tachycardia. No hypoxia. EKG showed no signs of acute ischemia.Patient's imaging negative for any obvious lower extremity DVT or knee abnormality. No evidence of CHF on chest x-ray. Labs are within acceptable limits as well with a normal BNP for the patient's age. I discussed results with the patient. She expressed understanding. Diagnosis is dependent edema. Recommended rest, elevation of the lower extremities. She'll be given a work note due to the late at night. She was in agreement this plan. Strict return precautions discussed. She'll follow up with their PCP. I instructed the patient to follow up with their PCP in the next 1-3 days. I explained that the patient should return to the emergency department if they experience any worsening symptoms. Strict return precautions were discussed with the patient. The patient expressed understanding of these instructions. I answe red all questions that the patient had. The patient was discharged home in good condition with their prescriptions and follow up information. Undiagnosed new problem with uncertain prognosis? @ -No Drug Therapy requiring intensive monitoring for toxicity (Heparin, Nitro, Insulin, Cardizem)? @ -No Were any procedures done? @ -No Diagnosis/symptom? @ -Dependent edema Acute, or Chronic, or Acute on Chronic? @ -Acute Uncomplicated (without systemic symptoms) or Complicated (systemic symptoms)? @ -Uncomplicated Side effects of treatment? @ -none Exacerbation, Progression, or Severe Exacerbation] @ -no Poses a threat to life or bodily function? @ -no - Lab Data Result diagrams: 02/01/23 20:05 02/01/23 20:05 Lab Results 02/01/23 02/01/23 02/01/23 Range/Units 20:05 20:05 20:05 WBC 7.3 (3.8-10.6) k/uL RBC 4.54 (3.80-5.40) m/uL Hgb 13.6 (11.4-16.0) gm/dL Hct 41.4 (34.0-46.0) % MCV 91.2 (80.0-100.0) fL MCH 29.9 (25.0-35.0) pg MCHC 32.8 (31.0-37.0) g/dL RDW 13.2 (11.5-15.5) % Plt Count 221 (150-450) k/uL MPV 8.6 PT 10.3 (10.0-12.5) sec INR 0.9 (<1.2) APTT 23.6 (22.0-30.0) sec Sodium 138 (137-145) mmol/L Potassium 4.4 (3.5-5.1) mmol/L Chloride 103 (98-107) mmol/L Carbon Dioxide 26 (22-30) mmol/L Anion Gap 9 mmol/L BUN 18 H (7-17) mg/dL Creatinine 0.87 (0.52-1.04) mg/dL Est GFR (CKD-EPI)AfAm >90 (>60 ml/min/1.73 sqM) Est GFR (CKD-EPI)NonAf 87 (>60 ml/min/1.73 sqM) Glucose 91 (74-99) mg/dL Calcium 9.2 (8.4-10.2) mg/dL NT-Pro-B Natriuret Pep 95 pg/mL - EKG Data -: EKG Interpreted by Me EKG Comments: 12-lead Electrocardiogram Interpretation Note EKG was reviewed and interpreted by myself. 12-lead ECG performed at 2014 is interpreted by me as revealing normal sinus rhythm at a rate of 67 beats per minute. axis is normal. LA interval is 181 ms, QRS duration is 94 ms, QTc is 441 ms.. There were no ST or T wave abnormalities to suggest myocardial ischemia or injury. R wave progression across the precordium was satisfactory. By my interpretation this EKG is non-diagnostic for acute ischemia. Disposition Clinical Impression: Dependent edema Disposition: HOME SELF-CARE Condition: Good Instructions (If sedation given, give patient instructions): Lymphedema (ED) Is patient prescribed a controlled substance at d/c from ED?: No Referrals: None,Stated [Primary Care Provider] - 1-2 days Time of Disposition: 21:20
[2023-02-01 20:34] LABS: African American GFR (CKD) >90 (>60 ml/min/1.73 sqM); Anion Gap 9 mmol/L; Blood Urea Nitrogen 18 mg/dL (7-17); Calcium 9.2 mg/dL (8.4-10.2); Carbon Dioxide 26 mmol/L (22-30); Chloride 103 mmol/L (98-107); Glucose 91 mg/dL (74-99); Non-African American GFR(CKD) 87 (>60 ml/min/1.73 sqM); Potassium 4.4 mmol/L (3.5-5.1); Sodium 138 mmol/L (137-145)
[2023-02-01 20:43] LABS: NT-Pro-B-Type Natriuretic Pept 95 pg/mL
--- NOTE | 2023-02-01 20:49 | XR ---
EXAMINATION TYPE: XR chest 1V portable DATE OF EXAM: 02/01/2023 Comparison: 03/21/2022 Clinical History: 37-year-old female leg edema. Eval for CHF Findings: Heart is borderline enlarged. No consolidation or sizable pleural effusion seen. Impression: Borderline heart size but otherwise without acute process seen.
--- NOTE | 2023-02-01 21:14 | US ---
EXAMINATION TYPE: US venous doppler duplex LE BI DATE OF EXAM: 02/01/2023 7:20 PM COMPARISON: NONE CLINICAL INDICATION: Female, 37 years old with history of LE swelling. eval for dvt; bilat leg swelli ng x 1 week SIDE PERFORMED: Bilateral TECHNIQUE: The lower extremity deep venous system is examined utilizing real time linear array sonog terrell with graded compression, doppler sonography and color-flow sonography. VESSELS IMAGED: Common Femoral Vein Deep Femoral Vein Greater Saphenous Vein * Femoral Vein Popliteal Vein Small Saphenous Vein * Proximal Calf Veins (* superficial vessels) Right Leg: Negative for DVT Left Leg: Negative for DVT IMPRESSION: No evidence for DVT within the bilateral lower extremities imaged from the groin to the upper calves.
== END 2023-02-01 21:48 | disposition home or self-care (01) ==
LOC: EC 18:52
DX: R60.0 Localized edema (principal); I10 Essential (primary) hypertension; Z91.030 Bee allergy status
CPT/HCPCS: 36415; 93005; 83880; 80048; 85027; 85610; 85730; 73560; 71045; 93970; 99284; 96374; J1885